=== PATIENT | male | born 1935 | race Caucasian/White ===

== ENCOUNTER 2017-07-06 06:20 | Inpatient (IN) ==
[2017-07-06] MEDS ORDERED: DILTIAZEM 50 MG/10 ML VIAL IV STA (06:35)
[2017-07-06] MEDS ORDERED: DILTIAZEM 100 MG VIAL.ADD IV ONE ×3 (06:45→13:56)
[2017-07-06] MEDS ORDERED: DILTIAZEM 50 MG/10 ML VIAL IV ONE (06:46)
[2017-07-06] MEDS ORDERED: SODIUM CHLORIDE 0.9% 100 ML IV ONE ×3 (06:57→13:56)
[2017-07-06 07:06] LABS: INR 1.1; PT Patient Result 11.5 SECS; Partial Thromboplastin Time 25.2 SECS (0-40)
[2017-07-06] MEDS: DILTIAZEM INJ 100 MG in SODIUM CHLORIDE 0.9% 100 ML IV SCH (07:07)
[2017-07-06 07:14] LABS: Barbiturates Screen,Urine Negative (Negative); Benzodiazepines Screen,Urine Negative (Negative); Cannabinoid Screen,Urine Negative (Negative); Opiate Screen,Urine Negative (Negative); Phencyclidine Screen,Urine Negative (Negative)
[2017-07-06 07:32] LABS: Thyroid Stimulating Hormone 0.555 uIU/ml (0.358-3.74); Troponin I Only 0.04 NG/ML (0.00-0.045)
[2017-07-06] MEDS ORDERED: ACETAMINOPHEN 325 MG TABLET PO PRN (08:25)
[2017-07-06] MEDS ORDERED: BISACODYL 5 MG TABLET PO PRN (08:25)
[2017-07-06] MEDS ORDERED: ONDANSETRON 4 MG/2 ML VIAL IV PRN (08:25)
[2017-07-06] MEDS ORDERED: FUROSEMIDE 40 MG/4 ML VIAL IV ONE (08:30)
[2017-07-06 09:14] LABS: Alanine Aminotransferase 61 U/L (16-61); Albumin 2.4 G/DL (3.4-5.0); Alkaline Phosphatase 125 U/L (45-117); Aspartate Amino Transferase 43 U/L (0-37); Bilirubin,Total < 0.39 MG/DL (0.2-1.0); Blood Urea Nitrogen 36 MG/DL (7-18); Calcium 7.5 MG/DL (8.5-10.1); Glucose 137 MG/DL (74-106); Osmolality,Calculated 295.8 MOS/KG (273-304); Potassium 3.4 MMOL/L (3.5-5.1); Sodium 144 MMOL/L (136-145); Total Protein 6.1 G/DL (6.4-8.3)
[2017-07-06 09:29] LABS: CKMB % 2.7 %; Troponin I Only 0.036 NG/ML (0.00-0.045)
[2017-07-06] MEDS: DOCUSATE SODIUM 100 MG CAPSULE PO SCH ×2 (11:19→22:08)
[2017-07-06] MEDS ORDERED: cefTRIAXone 1,000 MG VIAL ONE (11:21)
[2017-07-06] MEDS ORDERED: PANTOPRAZOLE 40 MG TABLET PO ONE (11:21)
[2017-07-06] MEDS ORDERED: ENOXAPARIN 40 MG/0.4 ML SYRINGE ONE (11:21)
[2017-07-06] MEDS: PANTOPRAZOLE 40 MG TABLET PO SCH ×2 (11:28→15:46)
[2017-07-06 11:29] LABS: Apearance,Urine CLEAR (Clear); Bacteria,Urine Occasional /HPF (Few); Bilirubin,Urine Negative (Negative); Blood, Urine Moderate mg/dL (Negative); Glucose,Urine (UA) Negative (Negative); Ketones,Urine Negative (Negative); Mucus,Urine Occasional /LPF (Occasional); Nitrite,Urine Negative (Negative); Protein,Urine Negative; RBC,Urine 3 /HPF (0-4); Squamous Epithelial Cell,Urine Occasional /HPF (0-10); Urine Color Yellow (Yellow); Urine Urobilinogen < 2.0 EU/DL (0.2-1.0); WBC,Urine 6 /HPF (0-6)
[2017-07-06] MEDS: ENOXAPARIN 40 MG/0.4 ML SYRINGE SUBCUT SCH ×2 (11:31→15:45)
[2017-07-06] MEDS: cefTRIAXone 1,000 MG in SYRINGE 1 EACH IV SCH ×2 (12:09→15:45)
[2017-07-06] MEDS: DILTIAZEM 30 MG TABLET PO SCH ×4 (15:45→22:07)
[2017-07-06] MEDS: ASPIRIN EC 81 MG TABLET PO SCH (15:45)
[2017-07-06] MEDS ORDERED: MAGNESIUM SULF RIDER 4 GM in PREMIX 1 EACH IV PRN (15:59)
[2017-07-06] MEDS ORDERED: MAGNESIUM SULF RIDER 2 GM in PREMIX 1 EACH IV PRN (15:59)
[2017-07-06] MEDS ORDERED: POTASSIUM CHLORIDE INJ 40 MEQ in SODIUM CHLORIDE 0.9% 500 ML IV ONE (16:00)
[2017-07-06 16:30] LABS: CKMB % 2.9 %
[2017-07-06 16:33] LABS: Troponin I Only 0.056 NG/ML (0.00-0.045)
[2017-07-06] MEDS: CALCIUM (CARBONATE)/VITAMIN D 600 MG-400 UNIT TABLET PO SCH (22:06)
[2017-07-06] MEDS: TAMSULOSIN 0.4 MG CAPSULE PO SCH (22:07)
[2017-07-07 05:50] LABS: Basophils % 0.1 % (0.0-0.8); Eosinophils # 0.1 10*3/uL (0.0-0.87); Hematocrit 40.4 VOL% (42.0-52.0); Hemoglobin 12.6 GM/DL (14.0-18.0); Immature Granulocytes % 0.6 %; Immature Granulocytes Absolute 0.08 #; Lymphocytes # 1.6 10*3/uL (1.4-4.0); Lymphocytes % 11.7 % (21.2-54.2); Mean Corpuscular HGB Conc 31.2 GM/DL (32-36); Mean Corpuscular Hemoglobin 29 PG (27-34); Mean Corpuscular Volume 92.2 FL (87-102); Mean Platelet Volume 10.2 FL (9.6-12.0); Monocytes # 0.7 10*3/uL (0.11-0.8); Monocytes % 4.9 % (1.7-12.7); Neutrophils # 11.1 10*3/uL (1.4-7.4); Neutrophils % 81.7 % (38.7-73.9); Platelet Count 295 T/CUMM (130-400); Red Blood Count 4.38 MC/CUMM (3.8-5.5); Red Cell Distribution Width 14.1 % (9.3-17.3); White Blood Count 13.6 T/CUMM (4-12)
[2017-07-07 06:39] LABS: Albumin 2.7 G/DL (3.4-5.0); Bilirubin,Total 0.7 MG/DL (0.2-1.0); Calcium 8.6 MG/DL (8.5-10.1); Magnesium 2.3 MG/DL (1.8-2.4); Osmolality,Calculated 297.6 MOS/KG (273-304); Potassium 4.6 MMOL/L (3.5-5.1); Total Protein 6.3 G/DL (6.4-8.3)
[2017-07-07 07:28] LABS: Risk Ratio 3.34
[2017-07-07] MEDS: cefTRIAXone 1,000 MG in SYRINGE 1 EACH IV SCH (09:30)
[2017-07-07] MEDS: DOCUSATE SODIUM 100 MG CAPSULE PO SCH ×2 (09:32→22:31)
[2017-07-07] MEDS: CALCIUM (CARBONATE)/VITAMIN D 600 MG-400 UNIT TABLET PO SCH ×2 (09:32→22:30)
[2017-07-07] MEDS: DILTIAZEM 30 MG TABLET PO SCH ×4 (09:32→22:35)
[2017-07-07] MEDS: PANTOPRAZOLE 40 MG TABLET PO SCH (09:32)
[2017-07-07] MEDS: ASPIRIN EC 81 MG TABLET PO SCH (09:33)
[2017-07-07] MEDS: ROSUVASTATIN 10 MG TABLET PO SCH (09:33)
[2017-07-07] MEDS: TAMSULOSIN 0.4 MG CAPSULE PO SCH ×2 (09:33→22:31)
[2017-07-07] MEDS: RIVASTIGMINE 9.5 MG/24 HR PATCH TRANSDERM SCH (09:41)
[2017-07-07] MEDS: ENOXAPARIN 40 MG/0.4 ML SYRINGE SUBCUT SCH (09:43)
[2017-07-07] MEDS: DILTIAZEM INJ 100 MG in SODIUM CHLORIDE 0.9% 100 ML IV SCH (09:45)
[2017-07-07] MEDS: METOPROLOL TARTRATE 50 MG TABLET PO SCH (14:07)
[2017-07-08 03:02] LABS: Basophils % 0.1 % (0.0-0.8); Eosinophils # 0.2 10*3/uL (0.0-0.87); Eosinophils % 1.7 % (0.00-10.9); Hematocrit 38.8 VOL% (42.0-52.0); Hemoglobin 12.1 GM/DL (14.0-18.0); Immature Granulocytes % 0.7 %; Immature Granulocytes Absolute 0.09 #; Lymphocytes # 1.8 10*3/uL (1.4-4.0); Lymphocytes % 13.3 % (21.2-54.2); Mean Corpuscular HGB Conc 31.2 GM/DL (32-36); Mean Corpuscular Hemoglobin 29 PG (27-34); Mean Corpuscular Volume 92.8 FL (87-102); Mean Platelet Volume 10.8 FL (9.6-12.0); Monocytes # 0.8 10*3/uL (0.11-0.8); Neutrophils # 10.6 10*3/uL (1.4-7.4); Neutrophils % 78.2 % (38.7-73.9); Platelet Count 286 T/CUMM (130-400); Red Blood Count 4.18 MC/CUMM (3.8-5.5); Red Cell Distribution Width 14.1 % (9.3-17.3); White Blood Count 13.5 T/CUMM (4-12)
[2017-07-08 03:29] LABS: Calcium 8.5 MG/DL (8.5-10.1); Magnesium 2.2 MG/DL (1.8-2.4); Osmolality,Calculated 298.4 MOS/KG (273-304); Potassium 5.1 MMOL/L (3.5-5.1)
[2017-07-08] MEDS: cefTRIAXone 1,000 MG in SYRINGE 1 EACH IV SCH (08:25)
[2017-07-08] MEDS: ENOXAPARIN 40 MG/0.4 ML SYRINGE SUBCUT SCH (08:28)
[2017-07-08] MEDS: PANTOPRAZOLE 40 MG TABLET PO SCH (08:29)
[2017-07-08] MEDS: TAMSULOSIN 0.4 MG CAPSULE PO SCH (08:29)
[2017-07-08] MEDS: DOCUSATE SODIUM 100 MG CAPSULE PO SCH (08:29)
[2017-07-08] MEDS: CALCIUM (CARBONATE)/VITAMIN D 600 MG-400 UNIT TABLET PO SCH (08:29)
[2017-07-08] MEDS: ROSUVASTATIN 10 MG TABLET PO SCH (08:29)
[2017-07-08] MEDS: DILTIAZEM 30 MG TABLET PO SCH ×2 (08:29→17:33)
[2017-07-08] MEDS: ASPIRIN EC 81 MG TABLET PO SCH (08:30)
[2017-07-08] MEDS: METOPROLOL TARTRATE 50 MG TABLET PO SCH (08:30)
[2017-07-08 12:42] VITALS: BP 163/72
[2017-07-08] MEDS: RIVASTIGMINE 9.5 MG/24 HR PATCH TRANSDERM SCH (12:45)
== END 2017-07-08 18:09 | DRG 309 ==
LOC: EDUNIT# → EDBD → N.ED 06:20 → N.EDINP 07:47 → N.TELES 14:15
PROVIDERS: ADMIT Family Medicine; ATTEND Family Medicine